=== PATIENT | female | born 1980 | race African-American/Black ===

== ENCOUNTER 2018-01-02 14:51 | Observation (INO) | payer OTHER ==
[2018-01-02] MEDS: SOD CHLORIDE 0.45% 1,000 ML IV (18:02)
[2018-01-02] MEDS ORDERED: ONDANSETRON 4 MG INJ IV (21:00)
[2018-01-02] MEDS ORDERED: DIPHENHYDRAMINE 50 MG INJ IV (21:00)
[2018-01-02] MEDS ORDERED: HYDROmorphONE 1 MG/5 ML IV SYRINGE IV (21:00)
[2018-01-02] MEDS ORDERED: METOCLOPRAMIDE 10 MG INJ IV (21:00)
[2018-01-02] MEDS ORDERED: FENTAnyl 50 MCG/ML VIAL IV ×2 (21:00)
[2018-01-02] MEDS ORDERED: MEPERIDINE 25 MG INJ IV (21:00)
[2018-01-02] MEDS ORDERED: PROPOFOL 20 ML (21:12)
[2018-01-02] MEDS ORDERED: ROCURONIUM 50 MG INJ (21:12)
[2018-01-02] MEDS ORDERED: LIDOCAINE 100 MG SYRINGE (21:12)
[2018-01-02] MEDS ORDERED: CEFAZOLIN 1 GM INJ (21:12)
[2018-01-02] MEDS ORDERED: SUCCINYLCHOLINE CHLORIDE 100 MG/5 ML SYG IV (21:12)
[2018-01-02] MEDS ORDERED: SUGAMMADEX SODIUM 200 MG/2 ML VIAL IV (21:13)
[2018-01-02] MEDS ORDERED: OXYTOCIN 10 UNIT INJ (21:24)
[2018-01-02] MEDS: HYDROmorphONE 1 MG/5 ML IV SYRINGE IV ×4 (21:48→22:21)
[2018-01-02] MEDS ORDERED: OXYCODONE/ACETAMINOPHEN (5/325) TAB PO (23:30)
[2018-01-03] MEDS: OXYCODONE/ACETAMINOPHEN (5/325) TAB PO ×2 (00:19→10:11)
[2018-01-03] MEDS: SOD CHLORIDE 0.45% 1,000 ML IV ×2 (02:00→06:21)
[2018-01-03 11:21] LABS: ADD MAN DIFF? NO
[2018-01-03 11:24] LABS: BASOPHIL # 0.1 10^3/ul (0.0-0.1); BASOPHILS % 0.4 % (0.0-2.0); EOSINOPHILS # 0.1 10^3/ul (0.0-0.5); EOSINOPHILS % 0.8 % (0.0-7.0); HEMATOCRIT 34.3 % (37.0-47.0); HEMOGLOBIN 10.9 g/dl (12.0-16.0); LYMPHOCYTES # 1.7 10^3/ul (0.8-2.9); LYMPHOCYTES % 14.2 % (15.0-51.0); MEAN CORPUSCULAR HEMOGLOBIN 22.5 pg (29.0-33.0); MEAN CORPUSCULAR HGB CONC 31.8 g/dl (32.0-37.0); MEAN CORPUSCULAR VOLUME 70.9 fl (82.0-101.0); MEAN PLATELET VOLUME 12.1 fl (7.4-10.4); MONOCYTE # 0.9 10^3/ul (0.3-0.9); MONOCYTES % 7.8 % (0.0-11.0); NEUTROPHIL # 8.9 10^3/ul (1.6-7.5); NEUTROPHILS % 76.3 % (39.0-77.0); PLATELET COUNT 362 10^3/UL (140-415); RED BLOOD COUNT 4.84 10^6/ul (4.20-5.40); RED CELL DISTRIBUTION WIDTH 14.3 % (11.5-14.5)
[2018-01-03 11:24] LABS: WHITE BLOOD COUNT 11.7 10^3/ul (4.8-10.8)
[2018-01-03] MEDS: IBUPROFEN 800 MG TAB PO (11:29)
[2018-01-03] MEDS ORDERED: ONDANSETRON 4 MG INJ IV (11:30)
[2018-01-03] MEDS ORDERED: AL HYDROX/MG HYDROX/SIMETH 30 ML CUP PO (11:30)
== END 2018-01-03 15:20 | disposition home or self-care (01) ==
LOC: MS1 14:51
PROVIDERS: Obstetrics & Gynecology
DX: O03.4 Incomplete spontaneous abortion without complication (principal); D25.9 Leiomyoma of uterus, unspecified
CPT/HCPCS: 59812; 85025; 86900; 86901; 87081; 88305; 99217